=== PATIENT | female | born 2000 | race Caucasian/White ===

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

== ENCOUNTER 2018-05-08 19:41 | Inpatient (IN) | payer SELFPAY ==
[2018-05-08] MEDS ORDERED: ONDANSETRON 4 MG TAB.RAPDIS PO ONE (22:09)
[2018-05-08] MEDS ORDERED: NORMAL SALINE 1000 ML 1,000 ML IV ONE (22:10)
--- NOTE | 2018-05-08 22:12 | ER Document Report ---
ED Medical Screen (RME) - General Chief Complaint: Nausea/Vomiting Stated Complaint: VOMITING Time Seen by Provider: 05/08/18 22:08 Mode of Arrival: Ambulatory Information source: Patient Notes: Patient is an otherwise healthy 18-year-old female who presents with chief complaint of nausea and vomiting. Patient reports that she started vomiting today and has been been vomiting all day nonstop. Patient reports upper abdominal/epigastric and right upper quadrant pain. Patient denies any surgical history. Patient reports that she has a similar episode happened last week after eating pizza which resolved on its own without seeking treatment. Exam: Actively vomiting during exam. Tenderness to palpation over epigastric and right upper quadrant. I have greeted and performed a rapid initial assessment of this patient. A comprehensive ED assessment and evaluation of the patient, analysis of test results and completion of the medical decision making process will be conducted by additional ED providers. Dictation of this chart was performed using voice recognition software; therefore, there may be some unintended grammatical errors. TRAVEL OUTSIDE OF THE [place] IN LAST 30 DAYS: No - Related Data Allergies/Adverse Reactions: No Known Allergies Allergy (Verified 03/23/17 20:21) Past Medical History Renal/ Medical History: Denies: Hx Peritoneal Dialysis Physical Exam - Vital signs Vitals: Temp Pulse Resp BP Pulse Ox 99.0 F 64 20 140/86 H 100 05/08/18 20:23 05/08/18 20:23 05/08/18 20:23 05/08/18 20:23 05/08/18 20:23 Course - Vital Signs Vital signs: Temp Pulse Resp BP Pulse Ox 99.0 F 64 20 140/86 H 100 05/08/18 20:23 05/08/18 20:23 05/08/18 20:23 05/08/18 20:23 05/08/18 20:23 Doctor's Discharge - Discharge Referrals: SEGUNDO DARDEN MD [Primary Care Provider] - Follow up as needed
[2018-05-08] MEDS ORDERED: ONDANSETRON 4 MG TAB.RAPDIS ONE (22:33)
--- NOTE | 2018-05-09 01:03 | RADIOLOGY REPORT (SQ) ---
EXAM DESCRIPTION: US ABDOMEN LIMITED COMPLETED DATE/TME: 05/08/2018 22:12 CLINICAL HISTORY: 18 years, Female, RUQ pain/vomiting COMPARISON: None. TECHNIQUE: Real-time duplex imaging was acquired through the right upper quadrant. LIMITATIONS: None. FINDINGS: Liver appears unremarkable. Patent hepatopedal portal vein and patent hepatic veins. The visualized segments of the pancreas appear unremarkable. Aorta and IVC are within normal limits. Right kidney is unremarkable without hydronephrosis. Unremarkable gallbladder. No stones or wall thickening. Common duct measures 3 mm. IMPRESSION: No evidence of acute process in the right upper quadrant 2010 [employer]- All Rights Reserved
--- NOTE | 2018-05-09 01:04 | ER Document Report ---
ED GI/ - General Chief Complaint: Nausea/Vomiting Stated Complaint: VOMITING Time Seen by Provider: 05/08/18 22:08 Mode of Arrival: Ambulatory Information source: Patient TRAVEL OUTSIDE OF THE [place] IN LAST 30 DAYS: No - HPI Patient complains to provider of: Abdominal pain, Vomiting Onset: Yesterday Timing/Duration: Sudden, Constant Quality of pain: Cramping, Sharp Severity at maximum: Severe Severity in ED: Moderate Pain Level: 3 Location: Epigastric, Pelvis. No: Chest pain Vaginal bleeding (Compared to normal period): None OB ultrasound done: No Sexual history: Inactive Associated symptoms: Nausea - Related Data Allergies/Adverse Reactions: No Known Allergies Allergy (Verified 03/23/17 20:21) Past Medical History - General Information source: Patient - Social History Smoking Status: Unknown if Ever Smoked Family History: Reviewed & Not Pertinent Renal/ Medical History: Denies: Hx Peritoneal Dialysis Review of Systems - Review of Systems Constitutional: denies: Chills, Fever EENT: No symptoms reported Cardiovascular: No symptoms reported Respiratory: No symptoms reported Gastrointestinal: Abdominal pain, Nausea, Vomiting Genitourinary: No symptoms reported Female Genitourinary: No symptoms reported Musculoskeletal: No symptoms reported Skin: No symptoms reported Hematologic/Lymphatic: Anemia Neurological/Psychological: No symptoms reported -: Yes All other systems reviewed and negative Physical Exam - Vital signs Vitals: Temp Pulse Resp BP Pulse Ox 99.0 F 64 20 140/86 H 100 05/08/18 20:23 05/08/18 20:23 05/08/18 20:23 05/08/18 20:23 05/08/18 20:23 - General General appearance: Appears well, Alert In distress: Mild - HEENT Head: Normocephalic, Atraumatic Eyes: Pale conjunctiva Cornea: Normal Extraocular movements intact: Yes Pupils: PERRL - Respiratory Respiratory status: No respiratory distress Chest status: Nontender Breath sounds: Normal Chest palpation: Normal - Cardiovascular Rhythm: Regular Heart sounds: Normal auscultation Murmur: No - Abdominal Inspection: Normal Distension: No distension Bowel sounds: Normal Tenderness: Tender Organomegaly: No organomegaly - Back Back: Normal, Nontender - Extremities General upper extremity: Normal inspection, Nontender, Normal color, Normal ROM , Normal temperature General lower extremity: Normal inspection, Nontender, Normal color, Normal ROM , Normal temperature, Normal weight bearing. No: Jacek's sign - Neurological Neuro grossly intact: Yes Cognition: Normal Orientation: AAOx4 Lianet Coma Scale Eye Opening: Spontaneous Lianet Coma Scale Verbal: Oriented Lianet Coma Scale Motor: Obeys Commands Lianet Coma Scale Total: 15 Speech: Normal Motor strength normal: LUE, RUE, LLE, RLE Sensory: Normal - Psychological Associated symptoms: Normal affect, Normal mood - Skin Skin Temperature: Warm Skin Moisture: Dry Skin Color: Normal Course - Re-evaluation Re-evalutation: 05/09/18 12:27 Patient was discussed with the hospitalist personal health coach Dr Stevens. He will admit patient to the hospital for further evaluation and management. - Vital Signs Vital signs: Temp Pulse Resp BP Pulse Ox 98.4 F 58 L 19 121/57 L 100 05/09/18 11:00 05/09/18 11:40 05/09/18 11:40 05/09/18 11:00 05/09/18 11:40 - Laboratory Result Diagrams: 05/09/18 01:52 05/09/18 01:52 Laboratory results interpreted by me: 05/09/18 05/09/18 05/09/18 01:52 01:52 01:52 Hgb 6.6 L Hct 23.9 L MCV 57 L MCH 15.7 L MCHC 27.7 L RDW 34.8 H Plt Count 684 H Seg Neuts % (Manual) 92 H Lymphocytes % (Manual) 5 L Monocytes % (Manual) 2 L Abs Neuts (Manual) 9.5 H PT 15.8 H Carbon Dioxide 20 L Anion Gap 20 H Calcium 10.8 H Total Protein 9.8 H Urine Protein Urine Ketones Urine Blood 05/09/18 02:54 Hgb Hct MCV MCH MCHC RDW Plt Count Seg Neuts % (Manual) Lymphocytes % (Manual) Monocytes % (Manual) Abs Neuts (Manual) PT Carbon Dioxide Anion Gap Calcium Total Protein Urine Protein 30 H Urine Ketones 80 H Urine Blood MODERATE H - Diagnostic Test Radiology reviewed: Image reviewed, Reports reviewed - Transfer of Care Notes: 05/09/18 12:28 Abdominal pain. Intractable Nausea and vomiting. Anemia. Discharge - Discharge Clinical Impression: Symptomatic anemia Abdominal pain Qualifiers: Abdominal location: generalized Qualified Code(s): R10.84 - Generalized abdominal pain Nausea and vomiting Qualifiers: Vomiting type: unspecified Vomiting Intractability: intractable Qualified Code( s): R11.2 - Nausea with vomiting, unspecified Condition: Stable Disposition: ADMITTED INPATIENT Admitting Provider: Dr Stevens Unit Admitted: Medical Floor
[2018-05-09] MEDS ORDERED: METOCLOPRAMIDE HCL INJ/PF 10 MG/2 ML SDV IV ONE (01:25)
[2018-05-09] MEDS ORDERED: NORMAL SALINE 1000 ML 1,000 ML IV ONE (01:26)
[2018-05-09 02:11] LABS: HEMATOCRIT 23.9 % (36.0-47.0); MEAN CORPUSCULAR HEMOGLOBIN 15.7 pg (27.0-33.4); MEAN CORPUSCULAR HGB CONC 27.7 g/dL (32.0-36.0); PLATELET COUNT 684 10^3/uL (150-450); RED BLOOD COUNT 4.22 10^6/uL (3.72-5.28); RED CELL DISTRIBUTION WIDTH 34.8 % (11.5-14.0); WHITE BLOOD COUNT 10.3 10^3/uL (4.0-10.5)
[2018-05-09 02:13] LABS: PROTHROMBIN TIME 15.8 SEC (11.4-15.4)
[2018-05-09 02:14] LABS: PARTIAL THROMBOPLASTIN TIME 27.7 SEC (23.5-35.8)
[2018-05-09 02:21] LABS: ALANINE AMINOTRANSFERASE 20 U/L (9-52); ALKALINE PHOSPHATASE 80 U/L (38-126); ASPARTATE AMINO TRANSFERASE 20 U/L (14-36); BILIRUBIN,DIRECT 0.3 mg/dL (0.0-0.4); BILIRUBIN,TOTAL 0.9 mg/dL (0.2-1.3); BLOOD UREA NITROGEN 14 mg/dL (7-20); CALCIUM 10.8 mg/dL (8.4-10.2); CARBON DIOXIDE 20 mmol/L (22-30); GLUCOSE 102 mg/dL (75-110); LIPASE 97.9 U/L (23-300); POTASSIUM 4.6 mmol/L (3.6-5.0); TOTAL PROTEIN 9.8 g/dL (6.3-8.2)
[2018-05-09 02:25] LABS: HEMOGLOBIN 6.6 g/dL (12.0-15.5)
[2018-05-09 02:27] LABS: ANION GAP 20 (5-19); CHLORIDE 105 mmol/L (98-107); SODIUM 144.9 mmol/L (137-145)
[2018-05-09 02:39] LABS: ABSOLUTE LYMPHOCYTES# (MANUAL) 0.5 10^3/uL (0.5-4.7); ABSOLUTE MONOCYTES # (MANUAL) 0.2 10^3/uL (0.1-1.4); ABSOLUTE NEUTROPHILS# (MANUAL) 9.5 10^3/uL (1.7-8.2); BASOPHILS % (MANUAL) 1 % (0-2); EOSINOPHILS % (MANUAL) 0 % (0-6); LYMPHOCYTES % (MANUAL) 5 % (13-45); MONOCYTES % (MANUAL) 2 % (3-13); NUCLEATED RED BLOOD CELLS 1 /100 WBC (0); SEGMENTED NEUTROPHILS % (MAN) 92 % (42-78); TOTAL CELLS COUNTED 100
[2018-05-09 02:40] LABS: ANISOCYTOSIS 4+; HELMET CELLS SLIGHT; HYPOCHROMASIA 2+; OVALOCYTES 1+; POIKILOCYTOSIS 2+; SCHISTOCYTES 2+; TOXIC GRANULATION 1+
[2018-05-09 02:41] LABS: MEAN CORPUSCULAR VOLUME 57 fl (80-97); PLATELET CLUMPS PRESENT; PLATELET COMMENT ADEQUATE; PLATELET GIANT PRESENT; PLATELET LARGE PRESENT
[2018-05-09 03:13] LABS: APPEARANCE,URINE CLEAR; BILIRUBIN,URINE NEGATIVE (NEGATIVE); COLOR,URINE AMBER; GLUCOSE, URINE NEGATIVE (NEGATIVE); KETONES,URINE 80 mg/dL (NEGATIVE); LEUKOCYTE ESTERASE,URINE NEGATIVE (NEGATIVE); NITRITE,URINE NEGATIVE (NEGATIVE); PROTEIN,URINE 30 mg/dL (NEGATIVE); URINE SPECIFIC GRAVITY 1.021; UROBILINOGEN,URINE NEGATIVE mg/dL (<2.0)
[2018-05-09] MEDS ORDERED: NORMAL SALINE 250 ML IV PRN (03:32)
[2018-05-09] MEDS ORDERED: NORMAL SALINE 1000 ML 1,000 ML IV PRN (04:38)
--- NOTE | 2018-05-09 06:42 | RADIOLOGY REPORT (SQ) ---
CLINICAL DATA: 18-year-old female with generalized abdominal pain. TECHNICAL DATA: Axial CT imaging of the abdomen and pelvis was performed following the administration of intravenous contrast.. Sagittal and coronal reconstructed images were then performed. The CT study is performed according to ALARA (as low as reasonably achievable) or ALARA/IMAGE GENTLY, with automatic adjustment of mA and/or kV according to patient size. Comparison: Limited abdominal ultrasound performed earlier the same day. FINDINGS: Lung bases: The lung bases are clear. There is minimal right basilar atelectasis and/or fibrosis. Liver:The liver is normal in size and configuration. There is a tiny hepatic cyst adjacent to the gallbladder fossa in the left hepatic lobe measuring approximately 1.3 cm. Liver attenuation is within normal limits. Spleen:The spleen is normal is size, configuration and attenuation. Gallbladder and bile duct: The gallbladder is well distended and unremarkable. There is no biliary ductal dilatation. Pancreas: The pancreas is grossly normal in size and configuration. Adrenal Glands:The adrenal glands are normal in size and configuration. Kidneys:The kidneys are normal in size and configuration. There is no evidence of hydronephrosis. There is no evidence of nephrolithiasis. No definite solid or cystic renal mass lesions are identified. Stomach:The stomach is grossly normal. There is no definite hiatal hernia. Bowel:The bowel gas pattern is non specific and non obstructive. Appendix: There is no CT evidence to suggest acute appendicitis. Free air:There is no evidence of free air. Free fluid: There is a small to moderate amount of free fluid in the posterior cul-de-sac. Vasculature: The aorta is normal in caliber and contour. The inferior vena cava is grossly unremarkable. Lymphadenopathy: No pathologic lymphadenopathy is identified. Bladder: The bladder is well distended and smooth in contour. Reproductive: The uterus is grossly within normal limits. There is a right adnexal cystic mass lesion measuring approximately 5.4 x 2.9 x 4.2 cm. Bones: No acute osseous abnormalities are identified. Soft tissues: No focal soft tissue abnormalities are identified. IMPRESSION: 1. Small to moderate amount of free fluid in the posterior cul-de-sac possibly related to a hemorrhagic cyst. 2. Right adnexal cystic mass lesion measuring approximately 5.4 cm in greatest diameter. Recommend follow-up pelvic ultrasound in 6-12 weeks. 3. Otherwise, unremarkable CT scan of the abdomen and pelvis.
--- NOTE | 2018-05-09 08:20 | PDOC H&P ---
History of Present Illness Admission Date/PCP: 05/09/18 03:35 SEGUNDO DARDEN MD Patient complains of: Nausea with vomiting History of Present Illness: CHUCKIE UMANA is a 18 year old female emergency department secondary to nausea with vomiting 1 day. States she has been having vague abdominal pain for the past couple of days and threw up all day yesterday. Denies blood in vomit. States she has been feeling extremely tired as of late. Has had a blood transfusion 1 year ago. Abdominal pain is mild at this time. Past Medical History Medical History: None Hematology: Reports: Anemia Past Surgical History Past Surgical History: Reports: None Social History Information Source: Patient Lives with: Family Smoking Status: Never Smoker Frequency of Alcohol Use: None Hx Recreational Drug Use: No Drugs: None Hx Prescription Drug Abuse: No Family History Family History: None, Reviewed & Not Pertinent Parental Family History Reviewed: Yes Children Family History Reviewed: Yes Sibling(s) Family History Reviewed.: Yes Medication/Allergy Home Medications: Docusate Sodium [Colace 100 mg Capsule] 100 mg PO BID #60 capsule 03/23/17 Ferrous Sulfate [Iron] 325 mg PO DAILY #30 tablet 03/23/17 Ondansetron [Zofran Odt 4 mg Tablet] 1 - 2 tab PO Q4H PRN #15 tab.rapdis Allergies/Adverse Reactions: No Known Allergies Allergy (Verified 03/23/17 20:21) Review of Systems Constitutional: PRESENT: as per HPI, anorexia, fatigue Gastrointestinal: PRESENT: abdominal pain, nausea, vomiting Physical Exam Vital Signs: Temp Pulse Resp BP Pulse Ox 98.6 F 72 19 124/73 100 05/09/18 06:40 05/09/18 06:40 05/09/18 06:40 05/09/18 06:40 05/09/18 06:40 Intake & Output 05/08/18 05/09/18 05/10/18 06:59 06:59 06:59 Intake Total 0 Balance 0 General appearance: PRESENT: mild distress, thin Head exam: PRESENT: atraumatic, normocephalic Eye exam: PRESENT: conjunctiva pink, EOMI, PERRLA. ABSENT: scleral icterus Ear exam: PRESENT: normal external ear exam Mouth exam: PRESENT: moist, tongue midline Neck exam: ABSENT: carotid bruit, JVD, lymphadenopathy, thyromegaly Respiratory exam: PRESENT: clear to auscultation kyler. ABSENT: rales, rhonchi, wheezes Cardiovascular exam: PRESENT: RRR. ABSENT: diastolic murmur, rubs, systolic murmur Pulses: PRESENT: normal dorsalis pedis pul Vascular exam: PRESENT: normal capillary refill GI/Abdominal exam: PRESENT: normal bowel sounds, soft. ABSENT: distended, guarding, mass, organolmegaly, rebound, tenderness Rectal exam: PRESENT: deferred Extremities exam: PRESENT: full ROM. ABSENT: calf tenderness, clubbing, pedal edema Neurological exam: PRESENT: alert, awake, oriented to person, oriented to place , oriented to time, oriented to situation, CN II-XII grossly intact. ABSENT: motor sensory deficit Psychiatric exam: PRESENT: appropriate affect, normal mood. ABSENT: homicidal ideation, suicidal ideation Skin exam: PRESENT: dry, intact, warm. ABSENT: cyanosis, rash Results Laboratory Results: 05/09/18 04:30 Blood Type B POSITIVE Antibody Screen NEGATIVE Impressions: Abdomen Ultrasound 05/08/18 22:12 IMPRESSION: No evidence of acute process in the right upper quadrant 2010 [employer]- All Rights Reserved Abdomen/Pelvis CT 05/09/18 03:18 IMPRESSION: 1. Small to moderate amount of free fluid in the posterior cul-de-sac possibly related to a hemorrhagic cyst. 2. Right adnexal cystic mass lesion measuring approximately 5.4 cm in greatest diameter. Recommend follow-up pelvic ultrasound in 6-12 weeks. 3. Otherwise, unremarkable CT scan of the abdomen and pelvis. Assessment & Plan - Diagnosis (1) Abdominal pain Qualifiers: Abdominal location: generalized Qualified Code(s): R10.84 - Generalized abdominal pain Is this a current diagnosis for this admission?: Yes (2) Nausea and vomiting Qualifiers: Vomiting type: unspecified Qualified Code(s): R11.14 - Bilious vomiting Is this a current diagnosis for this admission?: Yes (3) Symptomatic anemia Is this a current diagnosis for this admission?: Yes Plan: Patient to be admitted to telemetry for further monitoring and evaluation. Patient to be transfused 2 units packed RBCs at this time. Hemoglobin 6.6 with MCV 57. Last transfusion 1 year ago. Last menstrual period 2 months ago. Abdominal pain mild. Hemorrhagic cyst possible cause of patient's abdominal pain. Will consider gynecology consultation this a.m. Repeat CBC, BMP upon completion of transfusion. Tylenol as needed pain. We will continue to monitor closely and adjust accordingly - Time Time Spent: 30 to 50 Minutes Medications reviewed and adjusted accordingly: Yes Anticipated discharge: Home
[2018-05-09] MEDS ORDERED: ONDANSETRON 4 MG TAB.RAPDIS PO PRN (08:52)
[2018-05-09 09:34] LABS: PATH REVIEW PATHOLOGIST REVIEWED
[2018-05-09 15:06] LABS: HEMATOCRIT 30.7 % (36.0-47.0); MEAN CORPUSCULAR HEMOGLOBIN 19.3 pg (27.0-33.4); MEAN CORPUSCULAR HGB CONC 29.8 g/dL (32.0-36.0); PLATELET COUNT 626 10^3/uL (150-450); RED BLOOD COUNT 4.75 10^6/uL (3.72-5.28); WHITE BLOOD COUNT 10.7 10^3/uL (4.0-10.5)
[2018-05-09 15:10] LABS: RED CELL DISTRIBUTION WIDTH 40.8 % (11.5-14.0)
[2018-05-09 15:11] LABS: HEMOGLOBIN 9.2 g/dL (12.0-15.5); MEAN CORPUSCULAR VOLUME 65 fl (80-97)
[2018-05-09 18:11] VITALS: BP 113/78
--- NOTE | 2018-05-16 21:24 | PDOC DISCHARGE SUMMARY ---
General - Admit/Disc Date/PCP Admission Date/Primary Care Provider: 05/09/18 03:35 SEGUNDO DARDEN MD Discharge Date: 05/09/18 - Discharge Diagnosis (1) Anemia Is this a current diagnosis for this admission?: Yes (2) Abdominal pain Is this a current diagnosis for this admission?: Yes (3) Nausea and vomiting Is this a current diagnosis for this admission?: Yes - Additional Information Discharge Diet: As Tolerated Discharge Activity: Activity As Tolerated Prescriptions: Ondansetron [Zofran Odt 4 mg Tablet] 4 mg PO Q6HP PRN #20 tab.rapdis PRN Reason: NAUSEA Home Medications: Ondansetron [Zofran Odt 4 mg Tablet] 4 mg PO Q6HP PRN #20 tab.rapdis 05/09/18 History of Present Illness History of Present Illness: CHUCKIE UMANA is a 18 year old female emergency department secondary to nausea with vomiting 1 day. States she has been having vague abdominal pain for the past couple of days and threw up all day yesterday. Denies blood in vomit. States she has been feeling extremely tired as of late. Has had a blood transfusion 1 year ago. Abdominal pain is mild at this time. Hospital Course Hospital Course: 18 y.o. F admitted for N/V and anemia (Hgb 6.6) requiring 1U PRBC transfusion. Of note, the patient's VS remained within normal limits while in the emergency department. Her anemia was an incidental finding on laboratory studies, she was otherwise asymptomatic. The patient believed that her N/V was the result of ' eating too much dairy.' She stated she oftentimes would experience GI upset when consuming an excessive amount of dairy products in one day. When asked if she was lactose intolerant, the patient stated she 'wasn't sure.' The patient endorsed a remote history of PCOS. States she was briefly on control but is no longer taking it because she stopped seeing an OBGYN. CT Abdomen/Pelvis and Abdominal US completed, demonstrate a fluid collection in the cul-de-sac - possibly representing a hemorrhagic cyst. An additional R adenexal mass lesion measuring 5.4cm in diameter was discovered. OBGYN was consulted, they state there is no treatment or intervention warranted at this time. These findings would not account for a Hgb of 6.6. Since the patient was experiencing asymptomatic anemia, the decision was made to discharge her home with follow up to a media liaison officer. Additionally, the patient was encouraged to re-establish care with an OBGYN, especially given her radiological findings of multiple cysts. The patient stated understanding of her discharge instructions. For further information regarding this patient's hospitalization, please refer to EMR. Physical Exam Vital Signs: Temp Pulse Resp BP Pulse Ox 98.5 F 58 L 14 113/78 100 05/09/18 18:00 05/09/18 12:50 05/09/18 18:00 05/09/18 18:00 05/09/18 18:00 Results Laboratory Results: 05/09/18 14:44 Impressions: Abdomen Ultrasound 05/08/18 22:12 IMPRESSION: No evidence of acute process in the right upper quadrant 2010 [employer]- All Rights Reserved Abdomen/Pelvis CT 05/09/18 03:18 IMPRESSION: 1. Small to moderate amount of free fluid in the posterior cul-de-sac possibly related to a hemorrhagic cyst. 2. Right adnexal cystic mass lesion measuring approximately 5.4 cm in greatest diameter. Recommend follow-up pelvic ultrasound in 6-12 weeks. 3. Otherwise, unremarkable CT scan of the abdomen and pelvis. Status: Imported from PACS Qualifiers - * PATIENT BEING DISCHARGED WITH ANY OF THE FOLLOWING DIAGNOSIS: No Plan Discharge Plan: discharge home. follow up with PMD and OBGYN. avoid excess dairy. Time Spent: Less than 30 Minutes
== END 2018-05-09 18:18 | disposition home or self-care (01) | DRG 812 ==
LOC: ER 19:41 → EH 05-09 03:35
PROVIDERS: ADMIT Family Medicine; ATTEND Family Medicine
PROC: 30233N1 Transfusion of Nonautologous Red Blood Cells into Peripheral Vein, Percutaneous Approach (ICD-10-PCS; principal; 2018-05-09)
DX: D64.9 Anemia, unspecified (principal); R10.84 Generalized abdominal pain; R11.2 Nausea with vomiting, unspecified; R19.09 Other intra-abdominal and pelvic swelling, mass and lump
CPT/HCPCS: 36415; 36430; 74177; 76705; 80053; 81001; 81025; 83690; 85025; 85027; 85610; 85730; 86850; 86900; 86901; 86920; 96361; 96374; 99285; J2765; J7030; P9016; S0119

== ENCOUNTER → 2020-04-18 | Outpatient (CLI) | payer SELFPAY ==
[2020-04-18 13:52] VITALS: BP 161/95
--- NOTE | 2020-04-18 13:52 | ER RDC ASSESSMENT REPORT ---
Intake - In the Last 14 days Have you traveled outside [place]?: No Have you been in close contact with someone CONFIRMED: No Worked in Healthcare?: No - Symptoms Subjective Fever([place] feverish): No Chills: No Muscule Aches: No Runny Nose: No Sore Throat: No Cough (New or worsening chronic cough): No Shortness of breath: No Nausea or Vomiting: No Headache: No Abdominal Pain: No Diarrhea(3 or more loose stools in last 24 hours): No - Do you have any of the following Chronic lung disease: Asthma or emphysema or COPD: No Cystic Fibrosis: No Diabetes: No High Blood Pressure: No Cardiovascular Disease: No Chronic Kidney Disease: No Chronic Liver Disease: No Chronic blood disorder like Sickle Cell Disease: No Weak immune system due to disease or medication: No Neurologic condition that limits movement: No Developmental delay - Moderate to Severe: No Recent (within past 2 weeks) or current : No Morbid Obesity (>100 pounds over ideal weight): No - Objective Temperature: 99 F Pulse Rate: 86 Respiratory Rate: 15 Blood Pressure: 161/95 O2 Sat by Pulse Oximetry: 99 Objective: Patient is a well-appearing 20-year-old female, who presents today for COVID-19 screening. Disposition: Home; Selfcare General - General Stated Complaint: Upper respiratory symptoms Mode of Arrival: Ambulatory Information source: Patient Notes: The patient was evaluated during the global COVID-19 pandemic. That diagnosis was suspected/considered upon initial presentation. Their evaluation, treatment, and testing was consistent with current guidelines for patients who present with complaints or symptoms that may be related to COVID-19. Patient reports close contact with a COVID 19 lab confirmed positive individual. - HPI Patient complains to provider of: COVID-19 screening, asymptomatic Quality of pain: No pain Severity: None Pain Level: Denies Associated symptoms: None Exacerbated by: Denies Relieved by: Denies Similar symptoms previously: No Recently seen / treated by doctor: No - Related Data Allergies/Adverse Reactions: No Known Allergies Allergy (Verified 03/23/17 20:21) Past Medical History - Social History Smoking Status: Never Smoker Cigarette use (# per day): No Chew tobacco use (# tins/day): No Smoking Education Provided: No Frequency of alcohol use: Occasional Drug Abuse: None Occupation: Retail sales Lives with: Family Family History: Reviewed & Not Pertinent Patient has suicidal ideation: No Patient has homicidal ideation: No Renal/ Medical History: Denies: Hx Peritoneal Dialysis Physical Exam - General General appearance: Appears well In distress: None Notes: PHYSICAL EXAMINATION: GENERAL: Well-appearing and in no acute distress. HEAD: Atraumatic, normocephalic. EYES: sclera anicteric, conjunctiva are normal. ENT: nares patent. Moist mucous membranes. NECK: Normal range of motion, supple without lymphadenopathy. LUNGS: CTAB and equal. No wheezes rales or rhonchi. HEART: Regular rate and rhythm without murmurs. ABDOMEN: Soft, nontender, normal bowel sounds, no guarding. EXTREMITIES: Normal range of motion, no pitting edema. No cyanosis. BACK: No midline or CVA tenderness. NEUROLOGICAL: Cranial nerves grossly intact. Normal speech. Normal gait. PSYCH: Normal mood, normal affect. SKIN: Warm, Dry, normal color and turgor, no obvious lesions or rash noted. Diagnostic Results Laboratory Results: Patient advised at this time they are considered a Person Under Investigation (PUI) for the COVID-19 Coronavirus. They have been made aware it is currently taking 3-5 days to receive their results, and The [facility] Department will call to advise them of their result, whether it is POSITIVE or NEGATIVE. Patient Education/Counseling Counseling/Education: Patient presents with upper respiratory symptoms worrisome for possible COVID- 19. Patient does not have symptoms worrisome as an emergency such as difficulty breathing, shortness of breath, chest pain, pressure, confusion or cyanosis. Patient appears suitable for discharge. Patient's vital signs are stable and patient is nontoxic in appearance. Good return precautions have been discussed with patient, patient verbalized understanding and is agreeable with discharge plan of care at this time. Patient provided COVID-19 discharge instructions to include: As a person under investigation for COVID-19, the [place] department of Health and Human Services, division of public health advises you to adhere to the following guidance until your test results are reported to you. If your test result is positive, you will receive additional information from your provider and your local health department at that time. Remain at home until you are cleared by the health provider or public health authorities. Keep a log of visitors to your home, notify any visitors to your home of your isolation status. If you plan to move to a new address or leave the county, notify the local health department in your County. Call your doctor or seek care if you have an urgent medical need. Before seeking medical care, call ahead to get instructions from the provider before arriving at the medical office clinic or hospital. Notify them that you are being tested for the virus that causes COVID-19 so that arrangements can be made, as necessary, to prevent transmission to others in the healthcare setting. Next, notify the local health department in your county. If a medical emergency arises and you need to call 911, inform dispatch and the first responders that you are being tested for the virus that causes COVID-19. Next, notify the local health department in your county. Guidance for worsening S/SX: For worsening symptoms, patient has been advised to contact their Primary Care Provider, or go to the nearest Emergency Department. RDC Discharge - Discharge Clinical Impression: COVID-19 Screening URI (upper respiratory infection) Qualifiers: URI type: unspecified URI Qualified Code(s): J06.9 - Acute upper respiratory infection, unspecified Condition: Stable Disposition: Home; Selfcare
== END ==
LOC: RDC 12:57
PROVIDERS: ATTEND Nurse Practitioner Family
DX: J06.9 Acute upper respiratory infection, unspecified (principal); Z20.828 Contact with and (suspected) exposure to other viral communicable diseases
CPT/HCPCS: 87635; 99201; 99211; C9803

== ENCOUNTER 2020-04-19 09:59 | Emergency (ER) | payer OTHER ==
[2020-04-19] MEDS ORDERED: ONDANSETRON HCL INJ/PF 4 MG/2 ML SDV IV ONE (10:13)
[2020-04-19] MEDS ORDERED: NORMAL SALINE 1000 ML 1,000 ML IV ONE (10:16)
[2020-04-19 11:46] LABS: HEMATOCRIT 36.4 % (36.0-47.0); HEMOGLOBIN 10.9 g/dL (12.0-15.5); MEAN CORPUSCULAR HEMOGLOBIN 18.7 pg (27.0-33.4); MEAN CORPUSCULAR VOLUME 62 fl (80-97); PLATELET COUNT 270 10^3/uL (150-450); RED BLOOD COUNT 5.86 10^6/uL (3.72-5.28); RED CELL DISTRIBUTION WIDTH 24.6 % (11.5-14.0); WHITE BLOOD COUNT 15.4 10^3/uL (4.0-10.5)
[2020-04-19 11:58] LABS: ALBUMIN 4.8 g/dL (3.5-5.0); ALKALINE PHOSPHATASE 96 U/L (38-126); ANION GAP 7 (5-19); ASPARTATE AMINO TRANSFERASE 23 U/L (14-36); BILIRUBIN,TOTAL 0.4 mg/dL (0.2-1.3); BLOOD UREA NITROGEN 11 mg/dL (7-20); CALCIUM 10.4 mg/dL (8.4-10.2); CARBON DIOXIDE 26 mmol/L (22-30); CHLORIDE 105 mmol/L (98-107); GLUCOSE 106 mg/dL (75-110); POTASSIUM 4.6 mmol/L (3.6-5.0); TOTAL PROTEIN 9.2 g/dL (6.3-8.2)
[2020-04-19] MEDS ORDERED: METOCLOPRAMIDE HCL ORAL SOLN 10 MG/10 ML UDCUP PO ONE (12:01)
[2020-04-19] MEDS ORDERED: MAG HYDROX/AL HYDROX/SIMETH SUSP 30 ML UDCUP PO ONE (12:01)
[2020-04-19] MEDS ORDERED: DIPHENHYDRAMINE HCL 25 MG CAPSULE PO ONE (12:01)
[2020-04-19] MEDS ORDERED: LIDOCAINE 2% VISCOUS SOLN 15 ML UDCUP PO ONE (12:01)
[2020-04-19 12:09] LABS: ABSOLUTE LYMPHOCYTES# (MANUAL) 2.5 10^3/uL (0.5-4.7); ABSOLUTE MONOCYTES # (MANUAL) 0.9 10^3/uL (0.1-1.4); BASOPHILS % (MANUAL) 0 % (0-2); EOSINOPHILS % (MANUAL) 1 % (0-6); LYMPHOCYTES % (MANUAL) 16 % (13-45); MONOCYTES % (MANUAL) 6 % (3-13); SEGMENTED NEUTROPHILS % (MAN) 77 % (42-78); TOTAL CELLS COUNTED 100
[2020-04-19 12:11] LABS: ANISOCYTOSIS 3+; HYPOCHROMASIA 2+; OVALOCYTES 1+; PLATELET COMMENT ADEQUATE
[2020-04-19 13:02] LABS: APPEARANCE,URINE SLIGHTLY-CLOUDY; BILIRUBIN,URINE NEGATIVE (NEGATIVE); COLOR,URINE YELLOW; GLUCOSE, URINE NEGATIVE (NEGATIVE); KETONES,URINE NEGATIVE (NEGATIVE); LEUKOCYTE ESTERASE,URINE NEGATIVE (NEGATIVE); NITRITE,URINE NEGATIVE (NEGATIVE); PROTEIN,URINE NEGATIVE (NEGATIVE); URINE SPECIFIC GRAVITY 1.021; UROBILINOGEN,URINE NEGATIVE mg/dL (<2.0)
--- NOTE | 2020-04-19 13:22 | ER Document Report ---
ED General - General Chief Complaint: Nausea/Vomiting/Diarrhea Stated Complaint: NAUSEA,VOMITING Notes: 20-year-old female who reports no past medical history presenting after waking up this morning with nausea and vomiting. Is not vomiting up blood. She has had one episode of vomiting while in the ER. She has concerns of covid as her family member tested positive yesterday and she had been around that family member for 10 days. She is asking if the rapid testing is performed her. She has already been tested and is pending results. She denies any fevers, chills, shortness of breath, chest pain, any additional symptoms. States her period is unregular and feels that it should be starting soon. TRAVEL OUTSIDE OF THE [place] IN LAST 30 DAYS: No - Related Data Allergies/Adverse Reactions: No Known Allergies Allergy (Verified 04/19/20 10:36) Past Medical History - Social History Smoking Status: Never Smoker Frequency of alcohol use: Occasional Drug Abuse: None Family History: Reviewed & Not Pertinent Patient has homicidal ideation: No Renal/ Medical History: Denies: Hx Peritoneal Dialysis Review of Systems - Review of Systems Constitutional: No symptoms reported EENT: No symptoms reported Cardiovascular: No symptoms reported Respiratory: No symptoms reported Gastrointestinal: See HPI Genitourinary: No symptoms reported Female Genitourinary: No symptoms reported Musculoskeletal: No symptoms reported Skin: No symptoms reported Hematologic/Lymphatic: No symptoms reported Neurological/Psychological: No symptoms reported Physical Exam - Vital signs Vitals: Temp Pulse BP Pulse Ox 98.1 F 99 142/112 H 99 04/19/20 10:09 04/19/20 10:09 04/19/20 10:04/19/20 10:09 Interpretation: Normal - Notes Notes: Adult General: GENERAL: Alert, interacts well. No acute distress HEAD: Normocephalic, atraumatic EYES: Extraocular movements intact. ENT: Airway patent. Nares patent. NECK: Full range of motion. Supple. Trachea midline. LUNGS: Clear to auscultation bilaterally, no wheezes, rales, or rhonchi. No respiratory distress. Nontender chest wall. HEART: Regular rate and rhythm. No murmurs, rubs or gallops. ABDOMEN: Soft, nontender. Nondistended. (-) [place] sign. Bowel sounds present in all 4 quadrants. No rebound, guarding or masses. GENITOURINARY: Deferred EXTREMITIES: Moves all 4 extremities spontaneously. BACK: Moves all extremities with full range of motion. NEUROLOGICAL: Alert and oriented x3. Normal speech. Strength 5/ 5 in all extremities. PSYCH: Normal affect, normal mood. SKIN: Warm, dry, normal turgor. No rashes or lesions noted. Course - Re-evaluation Re-evalutation: 04/20/20 08:54 Patient in no acute distress, non toxic in appearance. States she still is slightly nauseated. Was provided a GI cocktail and reports no additional nausea after receiving this. I discussed with patient that the rapid covid testing is not offered readily in the emergency department and since she already has a covid test pending she should wait for results and follow the instructions from the health department in regards to self isolation. Her vitals are stable and physical exam is benign and she has had improvement in her symptoms. She had blood in her urine which she should have follow up by her primary care. I discussed her symptoms are likely viral in etiology and that I will prescribe her zofran. I discussed return precautions discussed to include worsening symptoms and/or the developement of new symptoms. Patient acknowledges and verbalizes understanding of instructions and plan. All questions answered. 04/20/20 08:57 - Vital Signs Vital signs: Temp Pulse Resp BP Pulse Ox 98.2 F 67 18 136/82 H 100 04/19/20 14:18 04/19/20 14:18 04/19/20 14:18 04/19/20 14:18 04/19/20 14:18 - Laboratory Result Diagrams: 04/19/20 10:35 04/19/20 10:35 Laboratory results interpreted by me: 04/19/20 04/19/20 04/19/20 10:35 10:35 12:20 WBC 15.4 H RBC 5.86 H Hgb 10.9 L MCV 62 L MCH 18.7 L MCHC 30.0 L RDW 24.6 H Abs Neuts (Manual) 11.9 H Calcium 10.4 H Total Protein 9.2 H Urine Blood LARGE H Discharge - Discharge Clinical Impression: Person under investigation for COVID-19 Nausea & vomiting Qualifiers: Vomiting type: unspecified Vomiting Intractability: non-intractable Qualified Code(s): R11.2 - Nausea with vomiting, unspecified Condition: Stable Disposition: HOME, SELF-CARE Instructions: COVID-19 Guidance for Persons Under Investigation, Antinausea Medication ([facility]), Intravenous (IV) Fluids ([facility]) Additional Instructions: I suspect your nausea vomiting is from acute viral etiology. Please follow-up with your primary care provider if symptoms continue. Please also return the emergency department if you have worsening symptoms or development of new symptoms. I have prescribed an antinausea medication for you. Please take medication as prescribed. As you have had a covid test performed by another facility and still pending the results, you are still considered a person under investigation. Please follow the instructions on the additional paperwork inregards to being a person under investigation. Prescriptions: Ondansetron [Zofran Odt 4 mg Tablet] 1 - 2 tab PO Q4H PRN #15 tab.rapdis PRN Reason: For Nausea/Vomiting
[2020-04-19 14:17] VITALS: BP 136/82
== END 2020-04-19 14:18 | disposition home or self-care (01) ==
LOC: ER 09:59
DX: R11.2 Nausea with vomiting, unspecified (principal); R31.9 Hematuria, unspecified; Z20.828 Contact with and (suspected) exposure to other viral communicable diseases
CPT/HCPCS: 99283; 96361; 96374; 36415; 85025; 81025; 80053; 81001; J3490; J2405; J7030